=== PATIENT | female | born 1960 | race Caucasian/White ===

== ENCOUNTER 2019-02-05 17:40 | Emergency (ER) | payer BC, OTHER ==
[~2019-02-05] VITALS: Ht 160 cm; Wt 49.9 kg
[2019-02-05 18:12] VITALS: BP 148/89
--- NOTE | 2019-02-05 18:17 | PCM.EKG ---
[facility] Test Date: 2019-02-05 Test Time: 18:16:47 Pat Name: RAKAN RODRIGUES Department: Room: Gender: F Process Operator: : 1960 Requested By: FRANSICO BURCH Order Number: [id number] Reading MD: Fransico BURCH Measurements Intervals [place] Rate: 88 P: 77 TN: 166 QRS: 80 QRSD: 78 T: 81 QT: 352 QTc: 425 Interpretive Statements Normal sinus rhythm Normal ECG No previous ECG available for comparison Electronically Signed On 02-08-2019 4:06:24 CDT by Fransico BURCH Please click the below link to view image of tracing.
[2019-02-05] MEDS ORDERED: ZOFRAN ODT SL STA (18:21)
[2019-02-05] MEDS ORDERED: TYLENOL #3 PO STA (18:21)
[2019-02-05] MEDS ORDERED: ZOFRAN ODT ONE (18:25)
--- NOTE | 2019-02-05 18:25 | ER.PDOC ---
General Chief Complaint: General Complaint Stated Complaint: DIZZINESS Time seen by MD: 18:23 Source: patient Exam Limitations: no limitations History of Present Illness Initial Comments Dizziness on and off for 6 Months worse in the past 4 days. Headache for past 4 days. Dizziness started after she had ear surgery 6 Months ago. Severity: moderate Usually: walks w/o assistance Worsened By: movement of head Prior symptoms/Treatment: Similar symptoms previous Past Medical History LMP (females 10-50): hysterectomy Social History Smoking: non-smoker Alcohol Use: none Drug Use: none Review of Systems Constitutional: no symptoms reported Ears: dizziness Mouth: no symptoms reported Throat: no symptoms reported Respiratory: no symptoms reported Cardiovascular: no symptoms reported Gastrointestinal: nausea All Other Systems: Reviewed and Negative Physical Exam General Appearance: alert, no distress Neck: supple Respiratory: no resp distress, breath sounds nml CVS: reg rate & rhythm, heart sounds.nml Abdomen: non-tender, no organomegaly, no distention Skin: color nml, no rash, warm/dry Extremities: non-tender, nml ROM, no pedal edema Neuro/Psych: nml orientation, nml speech/cognition, nml mood/affect Cranial Nerves: nml as tested, no evidence of acute CVA Sensorimotor: nml motor, nml sensation Results/Orders Results/Orders Orders - FRANSICO BRUCH MD Cbc With Auto Diff (02/05/19 18:08) Comprehensive Metabolic Panel (02/05/19 18:08) Xr Chest 1v (02/05/19 18:08) Ct Head Wo Contrast (02/05/19 18:08) Ekg-Routine (02/05/19 18:08) Troponin I (02/05/19 18:08) Ondansetron (Zofran Odt) (02/05/19 18:21) Acetaminophen With Codeine (Tylenol #3) (02/05/19 18:21) Ondansetron (Zofran Odt) (02/05/19 18:25) Acetaminophen With Codeine (Tylenol #3) (02/05/19 18:48) Lorazepam (Ativan) (02/05/19 18:52) 0.9 % Sodium Chloride (Ns 100ml) (02/05/19 18:54) Fosphenytoin Sodium (Cerebyx) (02/05/19 18:55) Lorazepam (Ativan) (02/05/19 18:58) Fosphenytoin Sodium (Cerebyx) (02/05/19 18:58) Vital Signs Date Time Temp Pulse Resp B/P (MAP) Pulse Ox O2 Delivery O2 Flow Rate FiO2 02/05/19 18:14 97.9 93 14 97.9 02/05/19 18:12 97.9 93 14 148/89 (108) 96 Room Air 97.9 02/05/19 18:05 97.9 93 14 96 Room Air 97.9 Administered Medications Medications (Trade) Dose Ordered Sig/Chaim Route PRN Reason Start Time Stop Time Status Last Admin Dose Admin Fosphenytoin Sodium 1000 mg/ Sodium Chloride 120 ml @ 200 mls/hr STAT STAT IV 02/05/19 18:58 02/05/19 19:33 DC 02/05/19 19:08 200 MLS/HR Lorazepam (Ativan) 2 mg STAT STAT IV 02/05/19 18:58 02/05/19 19:01 DC 02/05/19 19:08 2 MG Ondansetron HCl (Zofran Odt) 4 mg STAT STAT SL 02/05/19 18:21 02/05/19 18:22 DC 02/05/19 18:28 4 MG Laboratory Tests Test 02/05/19 18:20 White Blood Count 12.1 10^3/uL (4.5-11.0) H Red Blood Count 4.06 10^6/uL (4.00-5.20) Hemoglobin 13.0 g/dL (12.0-15.0) Hematocrit 36.0 % (36.0-46.0) Mean Corpuscular Volume 88.7 fL (78-100) Mean Corpuscular Hemoglobin 32.0 pg (26-34) Mean Corpuscular Hemoglobin Concent 36.1 g/dL (33-37) Red Cell Distribution Width 11.6 % (11.5-14.5) Platelet Count 236 10^3/uL (150-400) Mean Platelet Volume 7.9 fL (7.8-11.0) Neutrophils (%) (Auto) 83.4 % (41.0-85.0) Lymphocytes (%) (Auto) 8.5 % (24.0-44.0) L Monocytes (%) (Auto) 7.3 % (5.0-12.0) Neutrophils # (Auto) 10.1 10^3/uL (1.8-7.7) H Lymphocytes # (Auto) 1.0 10^3/uL (1.0-4.8) Monocytes # (Auto) 0.9 10^3/uL (0.3-0.8) H Absolute Immature Granulocyte (auto 0.03 10^3 u/L (0-2) Immature Granulocytes % 0.20 % (0.00-0.50) Eosinophils % 0.4 % (0.0-5.0) Basophils % 0.2 % (0.0-0.2) Basophils # 0.0 10^3/uL (0.0-0.1) Eosinophil Count 0.1 10^3/uL (0.0-0.2) Sodium Level 129 mmol/L (132-145) L Potassium Level 4.6 mmol/L (3.6-5.2) Chloride Level 94.0 mmol/L (96-109) L Carbon Dioxide Level 24.9 mmol/L (20.0-32) Anion Gap 14.7 Blood Urea Nitrogen 10 mg/dL (7-18) Creatinine 0.82 mg/dL (0.59-1.40) Estimated GFR () 86.3 (>/=60) BUN/Creatinine Ratio 12.0 Glucose Level 108 mg/dL (70-110) Calcium Level 9.4 mg/dL (8.4-10.5) Total Bilirubin 0.4 mg/dL (0.2-1.0) Aspartate Amino Transferase (AST) 27 U/L (0-35) Alanine Aminotransferase (ALT) 22 U/L (12-78) Alkaline Phosphatase 97 U/L (50-136) Troponin I < 0.02 ng/mL (0.00-0.05) Total Protein 7.5 g/dL (6.4-8.2) Albumin 4.4 g/dL (3.4-5.0) Globulin 3.1 Progress Progress While patient is here, he had a generalized tonic-clonic seizure that lasted for one and half minute and patient was post ictal after that. She took her seizure medication this morning and has not had a seizure for 1 year. EKG/XRAY/CT/US XRAY: chest (No active disease) CT Comments: No acute intracranial abnormality Course Sepsis Screening Results: Posi: POSITIVE SEPSIS RISK Vitals & review Data Vital Sign - Last 24 Hours 02/05/19 02/05/19 02/05/19 18:05 18:12 18:14 Temp 97.9 97.9 97.9 97.9 97.9 97.9 Pulse 93 93 93 Resp 14 14 14 B/P (MAP) 148/89 (108) Pulse Ox 96 96 O2 Delivery Room Air Room Air Laboratory Tests Test 02/05/19 18:20 White Blood Count 12.1 10^3/uL Red Blood Count 4.06 10^6/uL Hemoglobin 13.0 g/dL Hematocrit 36.0 % Mean Corpuscular Volume 88.7 fL Mean Corpuscular Hemoglobin 32.0 pg Mean Corpuscular Hemoglobin Concent 36.1 g/dL Red Cell Distribution Width 11.6 % Platelet Count 236 10^3/uL Mean Platelet Volume 7.9 fL Neutrophils (%) (Auto) 83.4 % Lymphocytes (%) (Auto) 8.5 % Monocytes (%) (Auto) 7.3 % Neutrophils # (Auto) 10.1 10^3/uL Lymphocytes # (Auto) 1.0 10^3/uL Monocytes # (Auto) 0.9 10^3/uL Absolute Immature Granulocyte (auto 0.03 10^3 u/L Immature Granulocytes % 0.20 % Eosinophils % 0.4 % Basophils % 0.2 % Basophils # 0.0 10^3/uL Eosinophil Count 0.1 10^3/uL Sodium Level 129 mmol/L Potassium Level 4.6 mmol/L Chloride Level 94.0 mmol/L Carbon Dioxide Level 24.9 mmol/L Anion Gap 14.7 Blood Urea Nitrogen 10 mg/dL Creatinine 0.82 mg/dL Estimated GFR () 86.3 BUN/Creatinine Ratio 12.0 Glucose Level 108 mg/dL Calcium Level 9.4 mg/dL Total Bilirubin 0.4 mg/dL Aspartate Amino Transf (AST/SGOT) 27 U/L Alanine Aminotransferase (ALT/SGPT) 22 U/L Alkaline Phosphatase 97 U/L Troponin I < 0.02 ng/mL Total Protein 7.5 g/dL Albumin 4.4 g/dL Globulin 3.1 Sepsis Infection Criteria Pres: None O2 Sat by Pulse Oximetry: 96 Departure Time of Disposition: 19:41 Disposition: 02 XFER SHT-TRM HOSP Impression: Primary Impression: Seizure Condition: Stable Referrals: PCP,UNKNOWN (PCP) PRIMARY CARE PROVIDER Comments Transfer to [facility] ED for Dr. Garcia Duration or Time Spent with Pa: 60 mins Critical Care Note Total Time (mins): 60 MARCIN,FRANSICO Saucedo MD Feb 05, 2019 18:25
[2019-02-05 18:26] LABS: BASOPHIL % 0.2 % (0.0-0.2); EOSINOPHIL # 0.1 10^3/uL (0.0-0.2); EOSINOPHIL % 0.4 % (0.0-5.0); LYMPHOCYTES % 8.5 % (24.0-44.0); MEAN CELL HGB CONCENTRATION 36.1 g/dL (33-37); MEAN CORP VOLUME 88.7 fL (78-100); MEAN PLATELET VOLUME 7.9 fL (7.8-11.0); MONOCYTES # 0.9 10^3/uL (0.3-0.8); MONOCYTES % 7.3 % (5.0-12.0); NEUTROPHIL # 10.1 10^3/uL (1.8-7.7); NEUTROPHILS % 83.4 % (41.0-85.0); PLATELET COUNT 236 10^3/uL (150-400); RED CELL DISTRIBUTION WIDTH 11.6 % (11.5-14.5); WHITE BLOOD CELL 12.1 10^3/uL (4.5-11.0)
--- NOTE | 2019-02-05 18:45 | NUR ---
STATUS WAS CALLED TO BEDSIDE BY FAMILY PATIENT WAS HAVING ACTIVE SEIZURE LASTING APPROX 1.5 MINUTES. DURING SEIZURE PATIENTS HR INCREASED TO 152 AND O2 SAT DECREASED TO 86% AND SHE STARTED TO BECOME CYANOTIC. PLACED HER ON NRB MASK AT 15LPM. RT NOTIFIED AND AT BEDSIDE. EDP SUMMONED TO BEDSIDE AND NEW ORDERS RECIEVED. STARTED IV IN LEFT AC. AFTER SEIZURE PATIENT REMAINS POST ICTAL AT THIS TIME AND VITAL SIGNS STABLE. RT PLACED HER ON O2 PER NC AT 2LPM. FAMILY AT BEDSIDE AND UPDATED ON CONDITION.
[2019-02-05] MEDS ORDERED: TYLENOL #3 PO ONE (18:48)
[2019-02-05] MEDS ORDERED: ATIVAN ONE (18:52)
[2019-02-05] MEDS ORDERED: NS 100ML 100 ML IV ONE (18:54)
[2019-02-05] MEDS ORDERED: CEREBYX ONE (18:55)
[2019-02-05 18:57] VITALS: BP 129/60
[2019-02-05 18:57] LABS: ALANINE AMINOTRANSFERASE(ML) 22 U/L (12-78); ALKALINE PHOSPHATASE 97 U/L (50-136); ASPARTATE AMINO TRANSFERASE 27 U/L (0-35); CALCIUM 9.4 mg/dL (8.4-10.5); CARBON DIOXIDE 24.9 mmol/L (20.0-32); GLUCOSE 108 mg/dL (70-110)
[2019-02-05] MEDS ORDERED: CEREBYX IV STA (18:58)
[2019-02-05] MEDS ORDERED: NS IV STA (18:58)
[2019-02-05] MEDS ORDERED: ATIVAN IV STA (18:58)
--- NOTE | 2019-02-05 19:18 | DIREP ---
PROCEDURE:CT HEAD OR BRAIN W/O CONTRAST COMPARISON:None. INDICATIONS:Dizziness TECHNIQUE:CT images were created without intravenous contrast. FINDINGS: VENTRICLES:The ventricles are normal in size and configuration. CEREBRUM:Normal cerebral morphology with appropriate spencer white matter differentiation, except for mild frontal cortical atrophy. CEREBELLUM:Negative. BRAINSTEM:Negative. BASAL CISTERNS:Negative. HEMORRHAGE:No MASS LESION:No ACUTE INFARCT:No SKULL:Normal. SINUSES:Normal. OTHER:None. CONCLUSION:Mild frontal cortical atrophy. Otherwise, negative head CT. Dictated by: Lucio Fernando M.D. on 02/05/2019 at 07:16 PM
--- NOTE | 2019-02-05 19:19 | DIREP ---
PROCEDURE:CHEST 1 VIEW COMPARISON:None. INDICATIONS:Dizziness FINDINGS: LUNGS/PLEURA:No significant pulmonary parenchymal abnormalities. No effusions. VASCULATURE:Normal. Unremarkable pulmonary vasculature. CARDIAC:Normal. No cardiac silhouette abnormality or cardiomegaly. MEDIASTINUM:Normal. No visible mass or adenopathy. BONES:Normal. No fracture or visible bony lesion. OTHER:Negative. CONCLUSION:Normal examination. Dictated by: Lucio Fernando M.D. on 02/05/2019 at 07:18 PM
--- NOTE | 2019-02-05 19:30 | NUR ---
UPDATE DR. BURCH ON THE PHONE WITH [facility] ABOUT TRANSFER.
[2019-02-05] MEDS ORDERED: NS 1000ML 1,000 ML IV STA (19:43)
[2019-02-05 19:47] VITALS: BP 119/62
[2019-02-05] MEDS ORDERED: NS 1000ML 1,000 ML ONE (20:25)
[2019-02-05 20:41] VITALS: BP 120/62
[2019-02-05] MEDS ORDERED: CARB200T PO (20:42)
[2019-02-05] MEDS ORDERED: NEBI10TA3 PO (20:42)
[2019-02-05] MEDS ORDERED: LOSA50TA14 PO (20:42)
[2019-02-05] MEDS ORDERED: PROP15DR OP (20:42)
--- NOTE | 2019-02-05 20:49 | NUR ---
EMS CALLED DISPATCH FOR EMS TO TRANSFER PATIENT TO [facility] ER
--- NOTE | 2019-02-05 21:40 | NUR ---
[facility] ARRIVED TO TRANSPORT TO [facility] ER. REPORT GIVEN RELINQUISHED CARE. PATIENT WAS EASY TO AROUSE TO VOICE AND ORIENTED TO PERSON AND PLACE BUT DOES NOT RECALL HAVING SEIZURE. NS INFUSING WITHOUT COMPLICATION.
[2019-02-05 22:01] VITALS: BP 120/62
== END 2019-02-05 21:40 | disposition short-term general hospital (02) ==
LOC: ER 17:40
DX: R56.9 Unspecified convulsions (principal); Z79.899 Other long term (current) drug therapy; Z90.710 Acquired absence of both cervix and uterus
CPT/HCPCS: 36415; 70450; 71045; 80053; 84484; 85025; 93005; 96365; 96375; 99291; J2060; J3490; J7030; J7050 ×2; Q0162; Q2009 ×2; 96361

== ENCOUNTER 2020-10-06 21:53 | Emergency (ER) | payer BC, MEDICARE ==
[~2020-10-06] VITALS: Ht 160 cm; Wt 46.7 kg
[~2020-10-06 21:53] MED LIST: CARB200T PO; LOSA50TA14 PO; NEBI10TA3 PO; PROP15DR OP
[2020-10-06 21:55] VITALS: BP 158/84
[2020-10-06 22:15] VITALS: BP 158/84
--- NOTE | 2020-10-06 22:22 | ER.PDOC ---
General Chief Complaint: Requesting Medical Care Stated Complaint: SEIZURE Time seen by MD: 21:53 Source: patient, EMS Exam Limitations: no limitations History of Present Illness Initial Comments This 60-year-old female comes in with a complaint of having a seizure that occurred just prior to arrival. Patient has had a seizure disorder for the last 10 years. She has no aura prior to her seizures. She had her seizure this evening that lasted slightly more at least more than 2 minutes and family gave her intranasal Valium which stopped her seizures and called EMS.Patient has a contusion to her left lower lip no other injuries or complaints of pain. She has a neurologist that specializes in seizure disorders that she sees in [facility]. She is compliant with her medication. She does not really want anything done she states she is now back to her baseline and just needs to go home. I totally agree with her assessment of her own condition which she has lived with for 10 years and I will abide by her desire for nothing to be done. Timing/Onset/Duration: Witnessed (family,) Preceding Symptoms/Context: none Character Of Seizures: lost consciousness, completely Motor Activity: shaking all over Post-ictal Symptoms: confusion Injury: lip Allergies: Coded Allergies: No Known Allergies (Unverified , 02/05/19) Home Meds Reported Medications Propylene Glycol/Peg 400 (SYSTANE 0.3-0.4% EYE DROPS) 15 Ml Drops, 1 DROP OP QID, #30 MILLILITER 5 Refills 02/05/19 Losartan Potassium (LOSARTAN POTASSIUM) 50 Mg Tablet, 1 TAB PO DAILY, #30 TAB 5 Refills 02/05/19 Nebivolol Hcl (BYSTOLIC) 10 Mg Tablet, 1 TAB PO DAILY, #90 TAB 1 Refill 02/05/19 Carbamazepine (TEGRETOL) 200 Mg Tablet, 1 TAB PO DAILY24, #60 TAB 1 Refill 02/05/19 Past Medical History Medical History: hypertension, other (seizures) Family History Significant Family History: no pertinent family hx Social History Smoking: non-smoker Alcohol Use: none Drug Use: none Psychiatric/Neurological: see HPI All Other Systems: Reviewed and Negative Physical Exam General Appearance: alert, no distress EENT: nml eye inspection, PERRL, no nystagmus (lower lip comtusion) Neck/Back: neck supple Respiratory: no resp distress, breath sounds nml, no evidence of rib injury CVS: reg rate & rhythm, heart sounds nml Abdomen: non-tender, no organomegaly, no distention Skin: color nml, no rash, warm/dry Extremities: non-tender, nml ROM, no pedal edema Neuro/Psych: oriented x 3, speech nml, mood/affect nml Cerebellar: nml tested, nml Romberg Sensorimotor: no motor deficit, no sensory deficit, reflexes nml ER DEPART Departure Time of Disposition: 22:21 Disposition: 01 HOME, SELF-CARE Impression: Primary Impression: Seizures Condition: Stable Referrals: PCP,UNKNOWN (PCP) PRIMARY CARE PROVIDER Duration or Time Spent with Pa: 15m WAN YOUNG MD Oct 06, 2020 22:22
== END 2020-10-06 22:39 | disposition home or self-care (01) ==
LOC: ER 21:53 → EDBD 21:53 → ER 22:39
DX: R56.9 Unspecified convulsions (principal); I10 Essential (primary) hypertension; Z79.899 Other long term (current) drug therapy
CPT/HCPCS: 99281

== ENCOUNTER → 2023-07-28 | Outpatient (CLI) | payer BC | END | disposition home or self-care (01) | LOC: LAB 11:57 | DX: G40.209 Localization-related (focal) (partial) symptomatic epilepsy and epileptic syndromes with complex partial seizures, not intractable, without status epilepticus (principal) | CPT/HCPCS: 36415; 80185; 80186 ==

== ENCOUNTER 2023-10-29 11:20 | Emergency (ER) | payer BC ==
[~2023-10-29] VITALS: Ht 152.4 cm; Wt 52.2 kg
[2023-10-29 11:20] VITALS: BP 119/80; PULSE 127; RESP 14; TEMP 98.4; O2SAT 96
[2023-10-29 11:55] LABS: BASOPHIL # 0.1 10^3/uL (0.0-0.1); BASOPHIL % 0.5 % (0.0-0.2); EOSINOPHIL # 0.1 10^3/uL (0.0-0.2); EOSINOPHIL % 0.5 % (0.0-5.0); HEMATOCRIT(ML) 35.4 % (36.0-46.0); HEMOGLOBIN 11.5 g/dL (12.0-15.0); LYMPHOCYTES # 6.99 10^3/uL1 (1.0-4.8); LYMPHOCYTES % 45.6 % (24.0-44.0); MEAN CORP HGB 31.8 pg (26-34); MEAN CORP HGB CONCENTRATION 32.5 g/dL (33-36.5); MEAN CORP VOLUME 97.8 fL (78-100); MONOCYTES # 1.3 10^3/uL (0.3-0.8); MONOCYTES % 8.2 % (5.0-12.0); NEUTROPHIL # 6.9 10^3/uL (1.8-7.7); NEUTROPHILS % 44.9 % (41.0-85.0); PLATELET COUNT 253 10^3/uL (150-400); RED BLOOD CELL 3.62 10^6/uL (4.00-5.20); RED CELL DISTRIBUTION WIDTH 12.2 % (11.5-14.5); WHITE BLOOD CELL 15.3 10^3/uL (4.5-11.0)
[2023-10-29] MEDS ORDERED: [UNRECOGNIZED DRUG - OTHER] IV ONE (12:02)
[2023-10-29] MEDS ORDERED: KEPPRA 100 ML IV ONE ×2 (12:02→13:34)
[2023-10-29] MEDS ORDERED: VERSED IV ONE (12:02)
[2023-10-29 12:03] LABS: +ADD MANUAL DIFF(NO CHRG) YES
[2023-10-29 12:12] VITALS: PULSE 123; RESP 19; O2SAT 100
[2023-10-29 12:13] LABS: INR 1.1; PROTHROMBIN PROTIME 11.1 SEC (9.7-11.6)
[2023-10-29 12:22] LABS: ALBUMIN(ML) 3.9 g/dL (3.4-5.0); ALBUMIN/GLOBULIN RATIO 1.026; ANION GAP 26.3; BUN/CREATININE RATIO 11.8 (10.0-20.0); CALCIUM 9.3 mg/dL (8.4-10.5); CARBON DIOXIDE 14.3 mmol/L (20.0-32); CREATININE SERUM 1.44 mg/dL (0.59-1.40); EST GFR, NON-AA 36.8 (>/=60); POTASSIUM 3.6 mmol/L (3.6-5.2)
[2023-10-29] MEDS: KEPPRA 100 ML IV SCH (12:30)
[2023-10-29] MEDS: [UNRECOGNIZED DRUG - OTHER] IV SCH (12:30)
[2023-10-29] MEDS: VERSED IV SCH (12:30)
[2023-10-29 12:35] LABS: EOSINOPHIL 1 % (1-4); LYMPHOCYTE 46 % (25-36); MONOCYTE 5 % (3-9); SEGMENTED NEUTROPHILS 48 % (31-76); TOTAL CELLS COUNTED 100 #CELLS
[2023-10-29] MEDS ORDERED: DIPRIVAN 100 ML IV ONE (12:35)
[2023-10-29] MEDS: TNKASE IV ONE (12:37)
[2023-10-29] MEDS: DIPRIVAN 100 ML IV STA (12:40)
[2023-10-29 12:41] VITALS: BP 140/88; PULSE 118; RESP 18; O2SAT 100
[2023-10-29 12:46] LABS: BILIRUBIN,URINE NEGATIVE (NEGATIVE); LEUKOCYTE ESTERASE ,URINE NEGATIVE (NEGATIVE); NITRATE,URINE NEGATIVE (NEGATIVE); UROBILINOGEN,URINE 0.2 E.U./dL (0.2)
[2023-10-29 12:47] LABS: APPEARANCE,URINE CLEAR; UA COLOR YELLOW
[2023-10-29 13:07] LABS: ABG OX -sO2 99.7 % (94.0-97.00); ABG PH 7.381 (7.350-7.450); BE(B) -7.5 mmol/L (-2.0-2.0); HCO3act 16.2 mmol/L (22.0-26.0)
[2023-10-29] MEDS ORDERED: SUBLIMAZE IV SCH (13:30)
[2023-10-29] MEDS ORDERED: NS IV SCH (13:30)
[2023-10-29] MEDS ORDERED: TNKASE IV ONE (13:33)
[2023-10-29] MEDS: KEPPRA 100 ML IV STA (13:38)
[2023-10-29] MEDS: NS IV STA (15:00)
[2023-10-29] MEDS: SUBLIMAZE IV STA (15:00)
[2023-10-29] MEDS ORDERED: ZEMURON IV ONE (15:30)
[2023-10-29] MEDS ORDERED: AMIDATE IV ONE (15:30)
== END 2023-10-29 15:00 | disposition short-term general hospital (02) ==
LOC: EDBD 11:45 → ER 11:45
DX: R82.90 Unspecified abnormal findings in urine (principal); I63.9 Cerebral infarction, unspecified; R56.9 Unspecified convulsions; I10 Essential (primary) hypertension
CPT/HCPCS: 99291; 70498; 31500; 96365; 96375; 71045; 96366; 99292; 87086; 70496; 80053; 85025; 36415; 84484; 81001; 85610; 85730; 82803; 96368; 36600; 70450; 93005; J3101; J3490 ×2; J3010; J1953 ×2; Q9967; 82810; 94002